=== PATIENT | male | born 1970 ===

== ENCOUNTER → 2018-10-21 21:24 | Outpatient (REF) | payer OTHER, SELFPAY ==
[2018-10-21 22:02] LABS: Add Manual Diff / Slide Review NO; Basophils Absolute Auto 200 /uL (0-100); Eosinophils Absolute Auto 200 /uL (0-450); Eosinophils Percent Auto 3.4 % (2-4); Hematocrit 43.6 % (41-53); Hemoglobin 14.5 g/dL (13.5-17.5); Lymphocytes Absolute Auto 1900 /uL (1100-4500); Lymphocytes Percent Auto 28.6 % (25-40); Mean Corpuscular HGB Conc 33.4 % (30-36); Mean Corpuscular Hemoglobin 29.5 PG (26-34); Mean Corpuscular Volume 88.5 fL (80-100); Monocytes Absolute Auto 800 /uL (0-900); Monocytes Percent Auto 12.3 % (3-14); Neutrophils Absolute Auto 3500 /uL (1500-7000); Neutrophils Percent Auto 52.7 % (50-75); Platelet Count 409 X10^3/uL (150-400); Red Blood Cell Count 4.93 X10^6/uL (4.5-5.9); Red Cell Distribution Width 13.8 % (11.6-14.8); White Blood Cell Count 6.6 X10^3/uL (4.5-11.0)
[2018-10-24 15:52] LABS: PSA Total 1.09 ng/mL (< 4.01)
[2018-10-25 14:27] LABS: Estradiol 71 pg/mL (< 40)
== END ==
LOC: LAB 21:24
PROVIDERS: Visit Provider Naturopath
DX: E29.1 Testicular hypofunction (principal); R68.82 Decreased libido
CPT/HCPCS: 36415; 82670; 84153; 84154; 84270; 84402; 84403; 85025